=== PATIENT | female | born 1990 | race Caucasian/White ===

== ENCOUNTER → 2017-09-14 08:37 | Outpatient (CLI) | payer OTHER, SELFPAY | DX: Z34.01 Encounter for supervision of normal first pregnancy, first trimester (principal); Z3A.08 8 weeks gestation of pregnancy | CPT/HCPCS: 87086 ==

== ENCOUNTER → 2017-09-14 08:48 | Outpatient (CLI) | payer OTHER, SELFPAY ==
[2017-09-14 09:34] LABS: Appearance Urine UA CLEAR; Bilirubin Urine UA NEGATIVE (NEGATIVE); Color Urine UA YELLOW; Glucose Urine UA NEGATIVE (Normal); Ketones Urine UA NEGATIVE (NEGATIVE); Leukocyte Esterase Urine UA NEGATIVE (NEGATIVE); Nitrite Urine UA Negative (Negative); Occult Blood Urine UA NEGATIVE (Negative); Protein Urine UA NEGATIVE (Negative); Urobilinogen Urine UA 0.2 E.U./dL (0.2); pH Urine UA 7.5 (4.5-8.0)
[2017-09-14 09:44] LABS: Add Manual Diff / Slide Review NO; Basophils Percent Auto 0.7 % (0-2); Eosinophils Percent Auto 1.3 % (2-4); Hematocrit 39.7 % (36-46); Hemoglobin 13.5 g/dL (12.0-16.0); Lymphocytes Percent Auto 28.4 % (25-40); Mean Corpuscular HGB Conc 34.1 % (30-36); Mean Corpuscular Hemoglobin 29.1 PG (26-34); Mean Corpuscular Volume 85.3 fL (80-100); Monocytes Percent Auto 8.5 % (3-14); Neutrophils Absolute Auto 4800 /uL (3000-5900); Neutrophils Percent Auto 61.1 % (50-75); Platelet Count 225 X10^3/uL (150-400); Red Blood Cell Count 4.65 X10^6/uL (4.0-5.2); Red Cell Distribution Width 13.4 % (11.6-14.8); White Blood Cell Count 7.9 X10^3/uL (4.5-11.0)
[2017-09-14 10:04] LABS: Glucose 91 mg/dL (70-100)
[2017-09-14 10:59] LABS: Hepatitis B Surface Antigen NEGATIVE s/c (NEGATIVE); Rubella Antibody IgG 16.5 IU/mL (>15)
[2017-09-14 11:20] LABS: HIV 1 and 2 Antibody NEGATIVE (NEGATIVE); Hep C Virus Ab w/Reflex Quant NEGATIVE s/c (NEGATIVE)
[2017-09-18 13:59] LABS: HSV 2 IGG AB < 0.90 index (< 0.90); HSV1IGG < 0.90 index (< 0.90)
[2017-09-22 18:19] LABS: Rapid Plasma Reagin NON-REACTIVE
== END ==
DX: Z3A.08 8 weeks gestation of pregnancy (principal); Z34.01 Encounter for supervision of normal first pregnancy, first trimester
CPT/HCPCS: 80055; 81003; 82947; 83036; 86695; 86696; 86703; 86787; 86803; 86850; 86900; 86901; 87086

== ENCOUNTER → 2017-09-17 11:14 | Outpatient (CLI) | payer OTHER, SELFPAY | DX: Z53.9 Procedure and treatment not carried out, unspecified reason (principal) ==

== ENCOUNTER → 2017-10-15 16:35 | Outpatient (CLI) | payer OTHER, SELFPAY | DX: Z3A.12 12 weeks gestation of pregnancy (principal); Z36.9 Encounter for antenatal screening, unspecified | CPT/HCPCS: 36415; 84163; 84702 ==

== ENCOUNTER → 2017-11-12 08:26 | Outpatient (CLI) | payer OTHER, SELFPAY | DX: Z3A.12 12 weeks gestation of pregnancy (principal); Z36.0 Encounter for antenatal screening for chromosomal anomalies; Z34.02 Encounter for supervision of normal first pregnancy, second trimester | CPT/HCPCS: 36415; 86336 ==

== ENCOUNTER → 2018-01-28 08:31 | Outpatient (CLI) | payer OTHER, SELFPAY ==
[2018-01-28 10:42] LABS: GTT (PREG) 1 Hour PP 50gm Dose 117 mg/dL (76-139)
[2018-01-28 11:32] LABS: Hematocrit 35.7 % (36-46); Hemoglobin 12.2 g/dL (12.0-16.0)
== END ==
DX: Z34.02 Encounter for supervision of normal first pregnancy, second trimester (principal); Z3A.25 25 weeks gestation of pregnancy
CPT/HCPCS: 36415; 82950; 85014; 85018

== ENCOUNTER → 2018-04-05 10:56 | Outpatient (CLI) | payer OTHER, SELFPAY ==
[2018-04-06 09:20] LABS: Strep Grp B PCR NEG for Grp B Strep
== END ==
PROVIDERS: Visit Provider Specialist
DX: Z34.03 Encounter for supervision of normal first pregnancy, third trimester (principal)
CPT/HCPCS: 87653

== ENCOUNTER 2018-05-09 06:20 | Inpatient (IN) | payer OTHER, SELFPAY ==
--- NOTE | 2018-05-09 09:12 | P.HPOB_ITS ---
OB HPI Date/Time Date of admission: 05/09/18 Date Patient Seen: 05/09/18 Time Patient Seen: 08:57 History of Present Condition Chief complaint: EVALUATION OF LABOR : 1 Para: 0 Estimated Date of Delivery: 05/04/18 Estimated Gestational Age (weeks): 41 wee Narrative: Flower Ferrer is a 27 year old female one para 0 who presents in active labor. The patient's ANNE was determined by eight week ultrasound and initial exam. Her laboratory studies including screening studies for abnormalities are all within normal limits. During the her blood pressures remained normotensive and her urines remained negative for glucose and protein. Her weight during the went from 164 lb to 200 lb for 36 lb weight gain. Recent ultrasound on the 06 of May showed a vertex presentation with normal fluid and normal placenta and an infant with estimated weight of 8 lb 9 oz which was the 80th percentile . Evaluation of this patient's pelvis initially showed a to be not contracted but small. Indications Indication for induction OB: post dates History of Present care: good care and pounds weight gain (36) Dating criteria: LMP confirmed by 1st trimester US Ultrasounds: normal 1st trimester US, normal mid trimester US and other (Recent ultrasound showing baby to be 80th percentile) Obstetrical complications: none Medical complications: none Narrative: Patient with estimated smallish pelvis Preadmission Labs Blood type: O (+) positive -: Antibody screen: negative, Cystic fibrosis screen: unknown, GBS status: negative, HBsAG: negative, HIV: negative, HSV 1: negative, HSV 2: negative and RPR/VDLR: negative -: Chlamydia screen: detected (Negative) and Gonorrhea screen: detected (Negative) -: Rubella: immune and Varicella: immune HCT: 36.7 HCAB: negative PAP: Normal Integrated screen: Negative Quad screen: Normal Cell-free DNA: Not done 1 hr GTT: 117 Evaluation Evaluation Baseline heart rate: 130 Variability: Average (6-10) monitor accelerations: Present monitor decelerations: Variable Contraction Frequency (minutes): 6 Uterine Contraction Intensity: Moderate Category of Tracing: II Cervical dilation (cm): 5 Cervical effacement (%): 100 station: -1 [facility] Surgical History No history of previous surgery (Resolved 05/22/16) Social History Smoking Status: Never smoker Social History Smoking Status: Never smoker Meds Home Medications Medication Instructions Recorded Confirmed Type vitamins no.121-iron 28 tab PO .qd tab 09/14/17 09/14/17 History mg-folic acid 800 mcg tablet Allergies Allergy/AdvReac Type Severity Reaction Status Date / Time No Known Allergies Allergy Uncoded 06/13/17 12:42 Review of Systems Review of Systems All systems reviewed & are unremarkable except as noted in HPI and below Exam Const General: cooperative and healthy appearing HENOR Head: normal to inspection Ears: hearing grossly normal bilaterally Nose: external nose normal Face and sinus: normal facial exam Mouth: oral mucosae normal, lip normal, tongue normal and moist mucous membranes Teeth and gingiva: dentition normal Throat: posterior oropharynx normal Eyes General: appearance normal, both eyes and all related structures Neck Neck: normal visual inspection and full ROM Chest Chest: normal inspection of the chest and normal palpation of entire chest wall Breast inspection: normal inspection of the breasts and normal inspection of the axillae Breast Palpation: normal palpation of the breasts and normal palpation of the axillae Resp Effort & Inspection: normal respiratory effort Auscultation: clear to auscultation bilaterally Cardio Palpation: normal PMI Rate: regular rate Rhythm: regular rhythm Heart Sounds: S1 normal and S2 normal GI Inspection: normal to inspection Palpation: soft and no hepatosplenomegaly Percussion: normal to percussion Auscultation: normal bowel sounds OB/External & Speculum: external exam normal Manual OB Exam: dilated 5, effaced fully and station -1 Uterus Location (Fundal Height): 39 Presentation: vertex Estimated Weight (lbs): 9 Amniotic Fluid: no fluid Back/Spine/Pelvis Thoracic/Lumbar Spine: thoracic and lumbar spine normal to inspection Skin General: no rashes or lesions noted Neuro General: alert, oriented x3, tone normal and moves all extremities Cognition: normal cognition Speech: speech normal Gait: normal gait Motor: muscle tone normal throughout Sensory Exam: no sensory deficits noted Extrem General: normal to inspection and normal exam except as noted Psych Appearance: grossly normal and well kempt Mental Status: mental status grossly normal Speech and Movement: speech and movement normal Assessment and Plan (1) 41 weeks gestation of : Current visit: Yes Status: Acute Active labor 4-5 cm dilated vertex presentation with borderline pelvis Irregular contraction Plan is for IV fluid bolus, epidural, rupture membranes and Pitocin Plan: IV fluid bolus Epidural anesthesia Rupture membranes Pitocin augmentation of labor (2) Labor and delivery affected by generally contracted pelvis: Current visit: Yes Status: Acute
[2018-05-09] MEDS: LACTATED RINGERS 1,000 ML 1000 ML IV (09:30)
[2018-05-09 10:02] LABS: Add Manual Diff / Slide Review NO; Basophils Absolute Auto 100 /uL (0-100); Basophils Percent Auto 0.4 % (0-2); Eosinophils Absolute Auto 0 /uL (0-450); Hematocrit 36.6 % (36-46); Hemoglobin 11.8 g/dL (12.0-16.0); Lymphocytes Absolute Auto 1700 /uL (1100-4500); Lymphocytes Percent Auto 11.9 % (25-40); Mean Corpuscular HGB Conc 32.1 % (30-36); Mean Corpuscular Hemoglobin 25.6 PG (26-34); Mean Corpuscular Volume 79.8 fL (80-100); Monocytes Absolute Auto 600 /uL (0-900); Monocytes Percent Auto 4.1 % (3-14); Neutrophils Absolute Auto 11800 /uL (1500-7000); Neutrophils Percent Auto 83.6 % (50-75); Platelet Count 213 X10^3/uL (150-400); Red Blood Cell Count 4.58 X10^6/uL (4.0-5.2); Red Cell Distribution Width 15.2 % (11.6-14.8); White Blood Cell Count 14.1 X10^3/uL (4.5-11.0)
[2018-05-09] MEDS: LACTATED RINGERS 1,000 ML 125 ML IV (11:14)
[2018-05-09] MEDS: OXYTOCIN PREMIX 30 UNIT/500 ML PLAST..BAG IV (11:14)
[2018-05-09 12:08] VITALS: BP 118/69
--- NOTE | 2018-05-09 17:31 | P.PCNOB_ITS ---
Delivery date: 05/09/18 Intrapartal events: Prolonged 2nd Stage > 2.5 hours Cervical ripening method: none Induction method: none Delivery augmentation: rupture of membranes and pitocin Delivery monitor: external FHT and external uterine Route of delivery: forceps Indication for instrumentation: other (Prolonged 2nd stage) Episiotomy description: Midline L&D Laceration Description: Perineal - 4th Degree Delivery repair: chromic Estimated blood loss (mL): 450 Anesthesia type: Epidural Complications: none Narrative: the patient is a 27-year-old white female one now para one patient presented in active labor at 41 weeks of . An epidural was placed and membranes were ruptured and Pitocin begun. Patient made good progress to complete and then pushed for 2 hr and 45 min at which point there was maternal exhaustion. The epidural was reinforced. Low forceps were applied in the midline and a live-born male infant was delivered with scores of eight at 1 min and nine at 5 min in good condition. The respiratory therapist and nurse pronounced the infant normal in good condition. Cord blood was obtained. Cord had three vessels. The placenta delivered spontaneously. There was 0.25 degree extension. The rectum was repaired in two layers using two 0 chromic suture. Individual two 0 chromic suture were used for the rectal sphincter. the episiotomy was then closed in routine fashion using two 0 chromic suture in a continuous fashion. At the end of the procedure there was no bleeding. Vagina and perineum were intact. There were no rectal defects on di gital exam. Plan for aftercare: Routine aftercare
[2018-05-09] MEDS: DERMOPLAST SPRAY 20% 60 ML 1 SPRAY TOP (20:32)
[2018-05-09] MEDS: DOCUSATE 250 MG CAPSULE PO (20:33)
[2018-05-09] MEDS: LANOLIN OINT 7 GM 1 APPLIC TOP (20:34)
[2018-05-10] MEDS: KETOROLAC 30 MG/ML VIAL IV ×3 (03:50→18:26)
[2018-05-10 07:25] LABS: Hematocrit 27.6 % (36-46)
--- NOTE | 2018-05-10 09:17 | P.PN_ITS ---
Subjective Date Patient Seen: 05/10/18 Time Patient Seen: 09:15 Interval history: The patient is a 27-year-old one para one status post difficult forceps delivery but doing well. She is off IVs. She is taking p.o. well. She does continue with a Garcia in place because of the swelling in the vagina and periurethral E. she is draining clear urine. Exam Vital Signs (past 8 hours): Examination today is confined abdomen and pelvis. Fundus is U minus two. Lochia is scant Perineum is healing well Objective Labs Result Diagrams: 05/10/18 06:45 Labs: Laboratory Results - last 24 hr 05/09/18 05/09/18 05/10/18 09:40 09:40 06:45 WBC 14.1 H RBC 4.58 Hgb 11.8 L 9.0 L Hct 36.6 27.6 L MCV 79.8 L MCH 25.6 L MCHC 32.1 RDW 15.2 H Plt Count 213 Neut % (Auto) 83.6 H Lymph % (Auto) 11.9 L [place] % (Auto) 4.1 Eos % (Auto) 0.0 L Baso % (Auto) 0.4 Neut # (Auto) 08950 H Lymph # (Auto) 1700 [place] # (Auto) 600 Eos # (Auto) 0 Baso # (Auto) 100 Blood Type O Positive Antibody Screen Negative Assessment & Plan Assessment & Plan narrative: 1st day Doing well Garcia still in place Plan is for increased ambulation DC Garcia
[2018-05-10] MEDS: DOCUSATE 250 MG CAPSULE PO (10:14)
[2018-05-10] MEDS: MAGNESIUM HYDROXIDE 30 ML UDC PO (10:16)
[2018-05-10] MEDS: OXYCODONE/ACETAMINOPHEN 5/325 TABLET 2 TAB PO (14:49)
[2018-05-11] MEDS: IBUPROFEN 600 MG TABLET PO ×2 (00:30→06:48)
[2018-05-11 08:43] VITALS: BP 122/76; PULSE 83; RESP 18; TEMP 36.4
--- NOTE | 2018-05-11 08:44 | P.DS_ITS ---
Discharge Providers Date of admission: 05/09/18 06:20 Discharge Date: 05/11/18 Primary care physician: Matthew Recinos MD Consults: 05/09/18 09:14 Consult to Anesthesiology Urgent Comment: Consulting Provider: Anesthesiologist Reason for consultation: Epidural 05/09/18 20:25 Consult to Licensed [employer] Routine Comment: Discharge provider: Matthwe Recinos MD Summary Date Patient Seen: 05/11/18 Time Patient Seen: 08:40 Procedures: Indicated low forceps delivery Epidural anesthesia Median episiotomy 4Th degree repair Hospital Course: the patient is a 27-year-old white female one para one who presented in active labor. She was 41 weeks . Membranes were ruptured and Pitocin was begun because of a desultory labor. Epidural was placed. Patient made good progress to complete and pushed for 2 hr and 45 min but could push no longer. Laufe forceps were applied in the midline and live-born male was delivered with scores of eight at 1 min nine at 5 min in good condition. The baby weighed 8 lb 7 oz. There are no cervical or vaginal tears. A median episiotomy was cut because of the risk of shoulder dystocia. Patient sustained 0.25 degree tear. 4Th degree tear was repaired with a two layer technique. The estimated blood loss was 450 cc. Post delivery the patient did well. Garcia was initially left in place. It was discontinued the following day. She was progressively elevated and ambulated. And she was discharged home for follow-up in four weeks. instructions were given with regards to diet wound care bathing and exercise. Peripartum Data Infant Delivery Method: Assisted Delivery Laceration description: Perineal - 4th Degree Episiotomy description: Midline complications: none Discharge Diagnosis (1) 41 weeks gestation of : Status: Acute (2) Labor and delivery affected by generally contracted pelvis: Status: Acute Status at Discharge Cognitive/behavioral status at discharge: oriented Functional status at discharge: independent ambulation Overall status at discharge: patient is progressing back to baseline Time Spent with Patient Total time spent providing and/or coordinating discharge services: Specific discharge activities: No intercourse Progressive activity Objective Labs Result Diagrams: 05/10/18 06:45 Discharge Plan Discharge Plan Patient Disposition: Home Discharge Med Rec/Prescriptions Prescriptions: New Dermoplast (with menthol) 20-0.5 % Aerosol 1 spray topical Q1HR PRN (Reason: perineal pain) Qty: 1 RF: 0 oxycodone-acetaminophen 5-325 mg Tablet 2 tab PO Q4HR Qty: 30 RF: 0 magnesium hydroxide [Milk of Magnesia] 400 mg/5 mL Suspension 30 ml PO DAILY PRN (Reason: Constipation) Qty: 240 RF: 0 ibuprofen 600 mg Tablet 600 mg PO Q6HR PRN (Reason: As Needed For Fever/Mild Pain) Qty: 30 RF: 0 docusate sodium 250 mg Capsule 250 mg PO DAILY Qty: 20 RF: 0 Wjj-K-Oavrap Cream 1 applic topical PRN PRN (Reason: Tenderness) Qty: 1 RF: 0 ferrous gluconate 324 mg (38 mg iron) Tablet 324 mg PO BID Qty: 60 RF: 0 Continued PNV no.811-ohmp-aujuj acid 28 mg iron- 800 mcg tablet PO .qd RF: 0 Follow up/Referrals: Matthew Recinos MD [Primary Care Provider] - Provider Discharge Instructions Diet: Diet as Tolerated Activity: up ad karl No intercourse Cold/Heat Therapy: iced perineum Skin/Wound/Dressing Care Skin care: benzocaine spray Report to your healthcare provider any signs of infection, such as:: chills, fever, increased pain, unusual drainage and unusual redness Dressing: none Other wound treatment: keep episiotomy clean and dry Discharge Data Primary Care Provider: Matthew Recinos Attending Provider: Matthew Recinos Admit Date/Time: 05/09/18 06:20
== END 2018-05-11 10:30 | disposition home or self-care (01) | DRG 768 ==
LOC: AC 06:23 → LABOR 07:46
DX: O48.0 Post-term pregnancy (principal); Z37.0 Single live birth; O70.3 Fourth degree perineal laceration during delivery; O63.1 Prolonged second stage (of labor); Z3A.41 41 weeks gestation of pregnancy
CPT/HCPCS: 01967; 36415; 59050; 59400; 85014; 85018; 85025; 86850; 86900; 86901; G0379; J1885; J2590; J3010

== ENCOUNTER → 2019-02-07 07:20 | Outpatient (CLI) | payer OTHER, SELFPAY ==
[2019-02-07 08:13] LABS: Hematocrit 41.9 % (36-46); Hemoglobin 14.2 g/dL (12.0-16.0); Mean Corpuscular HGB Conc 33.9 % (30-36); Mean Corpuscular Volume 85.3 fL (80-100); Platelet Count 215 X10^3/uL (150-400); Red Blood Cell Count 4.91 X10^6/uL (4.0-5.2); Red Cell Distribution Width 13.9 % (11.6-14.8); White Blood Cell Count 5.9 X10^3/uL (4.5-11.0)
[2019-02-07 09:25] LABS: Alanine Aminotransferase 74 IU/L (<35); Albumin 4.6 g/dL (3.5-5.0); Albumin Globulin Ratio 1.5 (1.0-2.8); Alkaline Phosphatase 69 U/L (38-126); Aspartate Aminotransferase 32 IU/L (14-36); BUN Creatinine Ratio 24.3 (6-22); Bilirubin Total 0.7 mg/dL (0.2-1.3); Blood Urea Nitrogen 17 mg/dL (7-17); Calcium 9.5 mg/dL (8.4-10.2); Carbon Dioxide 25 mmol/L (22-32); Chloride 104 mmol/L (98-107); Cholesterol 197 mg/dL (140-199); Estimated Glomerular Filt Rate > 60.0 mL/min (>60); Glucose 97 mg/dL (70-100); HDL Cholesterol 56 mg/dL (40-60); HEMOLYSIS < 15 (0-50); LDL Cholesterol Calculated 117 mg/dL (<100); Sodium 140 mmol/L (137-145); Total Protein 7.6 g/dL (6.3-8.2); Triglycerides 121 mg/dL (35-150)
== END ==
PROVIDERS: PCP Nurse Practitioner Family; Visit Provider Nurse Practitioner Family
DX: Z00.00 Encounter for general adult medical examination without abnormal findings (principal); Z13.6 Encounter for screening for cardiovascular disorders
CPT/HCPCS: 36415; 80053; 80061; 85027

== ENCOUNTER → 2019-09-11 07:51 | Outpatient (CLI) | payer OTHER, SELFPAY ==
[2019-09-11 09:11] LABS: Alanine Aminotransferase 46 IU/L (<35); Albumin 4.5 g/dL (3.5-5.0); Albumin Globulin Ratio 1.6 (1.0-2.8); Alkaline Phosphatase 52 U/L (38-126); Aspartate Aminotransferase 43 IU/L (14-36); Bilirubin Total 0.6 mg/dL (0.2-1.3); Bilirubin Unconjugated 0.6 mg/dL (0.0-1.1); Globulin 2.8 g/dL (1.7-4.1); HEMOLYSIS 27 (0-50); Total Protein 7.3 g/dL (6.3-8.2)
== END ==
PROVIDERS: PCP Nurse Practitioner Family; Referring Provider Nurse Practitioner Family; Visit Provider Nurse Practitioner Family
DX: R74.0 Nonspecific elevation of levels of transaminase and lactic acid dehydrogenase [LDH] (principal)
CPT/HCPCS: 36415; 80076

== ENCOUNTER → 2019-09-12 07:31 | Outpatient (CLI) | payer OTHER, SELFPAY ==
[2019-09-12 09:03] LABS: TSH w/ Reflex to FT4 1.48 uIU/mL (0.47-4.68)
[2019-09-13 05:39] LABS: HBsAg Screen Negative (Negative); Hepatitis A Antibody IgM Indeterminate (Negative); Hepatitis B Core Antibody IgM Negative (Negative); Hepatitis C Antibody 0.3 s/co ratio (0.0-0.9)
[2019-09-16 12:08] LABS: Smooth Muscle Antibody 7 Units (0-19)
[2019-09-17 17:08] LABS: ANA Screen, IFA Positive (.)
== END ==
PROVIDERS: PCP Nurse Practitioner Family; Referring Provider Nurse Practitioner Family; Visit Provider Nurse Practitioner Family
DX: R74.8 Abnormal levels of other serum enzymes (principal)
CPT/HCPCS: 36415; 80074; 83516; 84443; 86038

== ENCOUNTER → 2019-09-15 14:39 | Outpatient (CLI) | payer OTHER, SELFPAY ==
--- NOTE | 2019-09-15 14:41 | DI.US.S_ITS ---
PROCEDURE: US ABDOMEN COMPLETE INDICATIONS: ELEV LFTS TECHNIQUE: Real-time scanning was performed of the abdominal and retroperitoneal organs, with image documentation. COMPARISON: None. FINDINGS: Liver: Liver is normal in size and homogeneous in echotexture. Gallbladder: Mobile stones are seen within the gallbladder lumen and the gallbladder wall is at the upper limits of normal in thickness at 3 mm Biliary ducts: Intrahepatic bile ducts are non-dilated. Extrahepatic bile duct caliber measures 5.0 mm. Normal is 6-7 mm or less in diameter, or 10 mm or less post-cholecystectomy. Pancreas: Visualized portions of the pancreas are sonographically normal. Spleen: Spleen is normal in size and homogeneous in echotexture. Kidneys: Kidneys are normal in size and echotexture. Right kidney measures 9.8 cm long; left kidney measures 9.7 cm long. No hydronephrosis or nephrolithiasis. No solid masses. Aorta: Visualized aorta is normal in caliber at less than 3 cm. Iliacs: Proximal common iliac arteries are normal in caliber at less than 2.5 cm. IVC: Intrahepatic inferior vena cava is patent. Miscellaneous: No free abdominal fluid. IMPRESSION: Gallstones are present within the gallbladder lumen but they are mobile and there is no sign of a definite acute cholecystitis superimposed. No liver mass lesion is found. No biliary distention Dictated by: Ilan Maurer M.D. on 09/15/2019 at 16:57 Approved by: Ilan Maurer M.D. on 09/15/2019 at 16:59
== END ==
PROVIDERS: PCP Nurse Practitioner Family; Referring Provider Nurse Practitioner Family; Visit Provider Nurse Practitioner Family
DX: R74.8 Abnormal levels of other serum enzymes (principal); K80.20 Calculus of gallbladder without cholecystitis without obstruction
CPT/HCPCS: 76700

== ENCOUNTER → 2020-02-02 09:14 | Outpatient (CLI) | payer OTHER, SELFPAY ==
[2020-02-02 09:51] LABS: Add Manual Diff / Slide Review NO; Basophils Absolute Auto 0 /uL (0-100); Basophils Percent Auto 0.5 % (0-2); Eosinophils Absolute Auto 100 /uL (0-450); Hematocrit 39.2 % (36-46); Hemoglobin 13.2 g/dL (12.0-16.0); Lymphocytes Absolute Auto 1900 /uL (1100-4500); Lymphocytes Percent Auto 29.7 % (25-40); Mean Corpuscular HGB Conc 33.7 % (30-36); Mean Corpuscular Hemoglobin 28.8 PG (26-34); Mean Corpuscular Volume 85.4 fL (80-100); Monocytes Absolute Auto 400 /uL (0-900); Monocytes Percent Auto 6.6 % (3-14); Neutrophils Absolute Auto 3900 /uL (1500-7000); Neutrophils Percent Auto 62.2 % (50-75); Platelet Count 219 X10^3/uL (150-400); Red Blood Cell Count 4.58 X10^6/uL (4.0-5.2); Red Cell Distribution Width 13.4 % (11.6-14.8); White Blood Cell Count 6.2 X10^3/uL (4.5-11.0)
[2020-02-02 09:54] LABS: Bilirubin Urine UA NEGATIVE (NEGATIVE); Color Urine UA YELLOW; Glucose Urine UA NEGATIVE (Negative); Ketones Urine UA NEGATIVE (NEGATIVE); Leukocyte Esterase Urine UA TRACE (NEGATIVE); Nitrite Urine UA NEGATIVE (Negative); Occult Blood Urine UA NEGATIVE (Negative); Protein Urine UA NEGATIVE (Negative); Specific Gravity Urine UA 1.015 (1.000-1.035); Urobilinogen Urine UA 0.2 E.U./dL (0.2)
[2020-02-02 09:55] LABS: Appearance Urine UA Slightly Cloudy; RBC Urine None Seen (0-5/HPF)
[2020-02-02 10:02] LABS: Bacteria Urine Many (>30); Squamous Epithelial Cell Urine 10-30 /HPF (0-5/HPF); WBC Urine 0-1/HPF (0-5/HPF)
[2020-02-02 16:32] LABS: Hepatitis B Surface Antigen NEGATIVE s/c (NEGATIVE); Rubella Antibody IgG 10.9 IU/mL (>15)
[2020-02-02 16:52] LABS: HIV 1 & 2 Ab/Ag 4th Gen Combo NEGATIVE (NEGATIVE); Hep C Virus Ab w/Reflex Quant NEGATIVE s/c (NEGATIVE)
[2020-02-03 02:40] LABS: Hepatitis A Ab IgM Negative (Negative); Hepatitis A Ab Total Positive (Negative)
[2020-02-03 05:13] LABS: Varicella IgG Antibody 295 index (Immune >165)
[2020-02-03 07:07] LABS: RPR Screen Non Reactive (Non Reactive)
== END ==
PROVIDERS: PCP Nurse Practitioner Family; Referring Provider Obstetrics & Gynecology; Visit Provider Obstetrics & Gynecology
DX: Z34.81 Encounter for supervision of other normal pregnancy, first trimester (principal); R74.8 Abnormal levels of other serum enzymes
CPT/HCPCS: 36415; 80055; 81003; 81015; 84163; 84702; 86708; 86709; 86787; 86803; 86850; 86900; 86901; 87086; 87389

== ENCOUNTER → 2020-03-17 09:10 | Outpatient (CLI) | payer OTHER, SELFPAY ==
--- NOTE | 2020-03-17 09:12 | DI.US.S_ITS ---
PROCEDURE: US OB >= 14 WEEKS FETUS INDICATIONS: ANATOMY OUTSIDE/PRIOR DATING DATA: Last menstrual period (LMP): Unknown . LMP-based estimated date of delivery (ANNE): Unknown . First dating scan (date and location): 01/01/20 . Estimated date of delivery (ANNE) from first dating scan: 08/06/20 TECHNIQUE: Real-time scanning was performed of the fetus, with image documentation and biometric measurements. Endovaginal scanning: Not performed COMPARISON: [facility], US OB <= 14 WEEKS FETUS, 01/01/2020, 8:45. [facility], US ABDOMEN COMPLETE, 09/15/2019, 14:58. [facility], OB >= 14 WEEKS FETUS, 12/31/2017, 8:22. FINDINGS: General: A single living intrauterine gestation is present. Presentation: Variable. Placenta: Placental position is posterior , without previa. Amniotic fluid index: 15.1 cm, normal range is 5-24 cm. , largest pocket measures 5.2 cm heart rate: 150 beats per minute. Maternal cervical canal: 4.2 cm long. Normal lower limit is 2.5 cm. biometrics: Biparietal diameter: 4.6 cm, 20 weeks 0 days Head circumference: 16.9 cm, 19 weeks 4 days Abdominal circumference: 15.4 cm, 20 weeks 4 days Femur length: 3.0 cm, 19 weeks 2 days Estimated gestational age from initial scan: 19 weeks 5 days Composite gestational age from present scan: 19 weeks 5 days Estimated weight and percentile: 322 g, 59th percentile Measurement variability for biometric dating: +/- 7 days from 14 weeks to 15 weeks 6 days gestation, +/- 10 days from 16 weeks to 21 weeks 6 days gestation, +/- 2 weeks from 22 weeks to 27 weeks 6 days gestation, +/- 3 weeks for 28 weeks gestation or later. weight reference: 4500 g or EFW >90/95% is considered macrosomia or large for gestational age. EFW <10% is small for gestational age. EFW 5% or less is considered intra-uterine growth restriction. Anatomic survey: Neuro: Ventricles are non-dilated at less than 10 mm. Cisterna magna is normal at 3-11 mm. Cerebellum is normal in size and morphology. Nuchal skin fold: Normal at less than 6 mm between 14-21 weeks gestational age. Face: Nose and lips, facial profile are normal. Spine: No evidence for spina bifida. Heart: 4-chambered heart is present, with normal ventricular outflow tracts. Diaphragm: Diaphragm is intact. Stomach: Left-sided stomach is present. Kidneys: No hydronephrosis. Normal is less than 5 mm in 2nd trimester, less than 7 mm in 3rd trimester. Cord: 3-vessel cord has orthotopic insertion. Bladder: Normal in size. Extremities: All 4 extremities identified. IMPRESSION: Single living intrauterine fetus in variable presentation. Expected interval growth as above Normal anatomic survey Dictated by: Yaya Moreno M.D. on 03/17/2020 at 11:11 Approved by: Yaya Moreno M.D. on 03/17/2020 at 11:15
[2020-03-17 11:48] LABS: Alanine Aminotransferase 22 IU/L (<35); Albumin 3.6 g/dL (3.5-5.0); Albumin Globulin Ratio 1.4 (1.0-2.8); Alkaline Phosphatase 60 U/L (38-126); Aspartate Aminotransferase 23 IU/L (14-36); Bilirubin Total 0.2 mg/dL (0.2-1.3); Bilirubin Unconjugated 0.2 mg/dL (0.0-1.1); Globulin 2.6 g/dL (1.7-4.1); HEMOLYSIS < 15 (0-50); Total Protein 6.2 g/dL (6.3-8.2)
[2020-03-19 20:36] LABS: AFP, Serum 51.6 ng/mL (.); Estriol, Free 2.36 ng/mL (.); Inhibin A, Dimeric 187.84 pg/mL (.); Inhibin A, MoM 0.98 (.); Maternal Ethnicity Caucasian (.); Maternal Weight 170 lbs (.); Number of Fetuses No (.); OSBR Risk 1 IN 10000 (.); Results Report (.); Test Results *Screen Negative* (.); hCG, Serum 47780 mIU/mL (.)
== END ==
PROVIDERS: PCP Nurse Practitioner Family; Referring Provider Nurse Practitioner Family; Visit Provider Obstetrics & Gynecology
DX: Z34.92 Encounter for supervision of normal pregnancy, unspecified, second trimester (principal); R74.8 Abnormal levels of other serum enzymes; Z3A.20 20 weeks gestation of pregnancy
CPT/HCPCS: 36415; 76811; 80076; 82105; 82677; 84702; 86336

== ENCOUNTER → 2020-04-26 08:30 | Outpatient (CLI) | payer OTHER, SELFPAY ==
[2020-04-26 09:56] LABS: Hematocrit 33.3 % (36-46); Hemoglobin 11.3 g/dL (12.0-16.0)
[2020-04-26 10:51] LABS: GTT (PREG) 1 Hour PP 50gm Dose 121 mg/dL (76-139)
== END ==
PROVIDERS: PCP Nurse Practitioner Family; Referring Provider Obstetrics & Gynecology; Visit Provider Obstetrics & Gynecology
DX: Z34.82 Encounter for supervision of other normal pregnancy, second trimester (principal); Z3A.26 26 weeks gestation of pregnancy
CPT/HCPCS: 36415; 82950; 85014; 85018

== ENCOUNTER → 2020-07-05 09:26 | Outpatient (CLI) | payer OTHER, SELFPAY ==
[2020-07-06 11:10] LABS: Strep Grp B PCR NEG for Grp B Strep
== END ==
PROVIDERS: PCP Nurse Practitioner Family; Visit Provider Obstetrics & Gynecology
DX: Z34.83 Encounter for supervision of other normal pregnancy, third trimester (principal); Z3A.36 36 weeks gestation of pregnancy
CPT/HCPCS: 87653

== ENCOUNTER 2020-07-25 19:22 | Inpatient (IN) | payer OTHER, SELFPAY ==
[2020-07-25 20:35] LABS: Add Manual Diff / Slide Review NO; Basophils Absolute Auto 0 /uL (0-100); Basophils Percent Auto 0.4 % (0-2); Eosinophils Absolute Auto 100 /uL (0-450); Eosinophils Percent Auto 0.8 % (2-4); Hematocrit 35.1 % (36-46); Hemoglobin 11.8 g/dL (12.0-16.0); Lymphocytes Absolute Auto 2300 /uL (1100-4500); Mean Corpuscular HGB Conc 33.6 % (30-36); Mean Corpuscular Hemoglobin 28.7 PG (26-34); Mean Corpuscular Volume 85.4 fL (80-100); Monocytes Absolute Auto 700 /uL (0-900); Monocytes Percent Auto 8.9 % (3-14); Neutrophils Absolute Auto 5100 /uL (1500-7000); Neutrophils Percent Auto 61.9 % (50-75); Platelet Count 169 X10^3/uL (150-400); Red Blood Cell Count 4.11 X10^6/uL (4.0-5.2); Red Cell Distribution Width 14.5 % (11.6-14.8); White Blood Cell Count 8.3 X10^3/uL (4.5-11.0)
[2020-07-25] MEDS: DINOPROSTONE VAG (CERVIDIL) 10 MG VAG (20:40)
[2020-07-25 20:50] LABS: COVID19 - ADMIT (NP swab/PCR) Negative (Negative)
[2020-07-25] MEDS: ZOLPIDEM 5 MG TABLET PO ×2 (21:32→21:33)
[2020-07-25 22:56] VITALS: BP 109/61
--- NOTE | 2020-07-26 08:27 | P.HPOB_ITS ---
OB HPI Date/Time Date of admission: 07/25/20 Date Patient Seen: 07/26/20 Time Patient Seen: 07:50 History of Present Condition Chief complaint: : 2 Para: 1 Estimated Date of Delivery: 07/31/20 Estimated Gestational Age (weeks): 39 Narrative: Flower Ferrer is a 29 year old 001 at 39 weeks 2 days, presenting for elective induction in the setting of a prior post-dates forceps delivery with a third-degree perineal laceration. Patient reports feeling well today, intermittent contractions, no vaginal bleeding or loss of fluid, good movement, no other symptoms or concerns. Her has been otherwise uncomplicated. Her was otherwise uncomplicated except for the large perineal laceration, and the patient strongly desires induction of labor 39 weeks to avoid a similar experience. She has no other contributory medical, surgical, family, or social history. Indications Indication for induction OB: other (History of third-degree perineal laceration) History of Present care: good care, initiated at week # (9), number of visits (12) and pounds weight gain (29) Dating criteria: based on 1st trimester US only Ultrasounds: normal 1st trimester US and normal mid trimester US Obstetrical complications: none Medical complications: none Preadmission Labs Blood type: O (+) positive -: Antibody screen: negative, GBS status: negative, HBsAG: negative, HIV: negative and RPR/VDLR: negative -: Chlamydia screen: not detected and Gonorrhea screen: not detected -: Rubella: immune and Varicella: immune Quad screen: Normal Urine: no growth 1 hr GTT: 121 Prior (ies) History: G1: 05/09/18, 40+5, 8#8, M, FAVD, 3rd degree perineal laceration, - Dr. Recinos Evaluation Evaluation Baseline heart rate: 135 Variability: Moderate (11-25) monitor accelerations: Present Monitor Decelerations: Absent Contraction Frequency (minutes): 5 Uterine Contraction Intensity: Mild Category of Tracing: Reactive Status: Category l Cervical dilation (cm): 2 Cervical effacement (%): 50 station: -2 Laboratory results: Laboratory Tests 07/25/20 07/25/20 07/25/20 20:00 20:00 20:18 WBC 8.3 RBC 4.11 Hgb 11.8 L Hct 35.1 L MCV 85.4 MCH 28.7 MCHC 33.6 RDW 14.5 Plt Count 169 Neut % (Auto) 61.9 Lymph % (Auto) 28.0 [place] % (Auto) 8.9 Eos % (Auto) 0.8 L Baso % (Auto) 0.4 Neut # (Auto) 5100 Lymph # (Auto) 2300 [place] # (Auto) 700 Eos # (Auto) 100 Baso # (Auto) 0 SARS-CoV-2 (PCR) Negative Blood Type O Positive Antibody Screen Negative Comments: EFW 8 lb [facility] Medical History Elevated liver enzymes Encounter for wellness examination in adult Gallstones (10/2019) Labor and delivery affected by generally contracted pelvis (spontaneous vaginal delivery) (~05/09/18) Surgical History Hx of tonsillectomy (~1997) Family History Grandmother No problems noted. Mother No problems noted. Father No problems noted. Grandfather No problems noted. 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[place] special sarah needs: No Smoking Status: Former smoker second hand exposure: No alcohol intake: former (pre- : Socially 3X/week) substance use type: does not use Meds Home Medications and Allergies Home Medications Medication Instructions Recorded Confirmed Type prenat.vits,taryn,rpm-zqfu-spbvk 1 tab PO DAILY 12/24/19 07/25/20 History Allergies Allergy/AdvReac Type Severity Reaction Status Date / Time No Known Allergies Allergy Uncoded 04/26/20 09:48 Review of Systems Constitutional Constitutional: Reports system reviewed and no additional complaints, except as documented Cardiovascular Cardiovascular: Reports system reviewed and no additional complaints, except as documented Respiratory Respiratory: Reports system reviewed and no additional complaints, except as documented Gastrointestinal Gastrointestinal: Reports system reviewed and no additional complaints, except as documented Genitourinary Genitourinary: Reports system reviewed and no additional complaints, except as documented Neurologic Neurologic: Reports system reviewed and no additional complaints, except as documented Exam Vital Signs (past 8 hours): VSS Resp Effort & Inspection: normal respiratory effort Auscultation: clear to auscultation bilaterally Cardio Rate: regular rate Rhythm: regular rhythm GI Palpation: soft and No tender External Female Exam: normal external appearance Extrem General: normal to inspection Objective Labs Result Diagrams: 07/25/20 20:00 Labs: Laboratory Results - last 24 hr 07/25/20 07/25/20 07/25/20 20:00 20:00 20:18 WBC 8.3 RBC 4.11 Hgb 11.8 L Hct 35.1 L MCV 85.4 MCH 28.7 MCHC 33.6 RDW 14.5 Plt Count 169 Neut % (Auto) 61.9 Lymph % (Auto) 28.0 [place] % (Auto) 8.9 Eos % (Auto) 0.8 L Baso % (Auto) 0.4 Neut # (Auto) 5100 Lymph # (Auto) 2300 [place] # (Auto) 700 Eos # (Auto) 100 Baso # (Auto) 0 SARS-CoV-2 (PCR) Negative Blood Type O Positive Antibody Screen Negative Assessment and Plan Assessment and Plan Assessment and Plan narrative: This patient is admitted for induction of labor in the setting of a prior 8#8 forceps assisted vaginal delivery with a 3rd degree perineal laceration. Cervidil ripening overnight successful, for pitocin per protocol this AM with AROM. Anticipate . EFW 8#. - cEFM, toco
[2020-07-26] MEDS: LACTATED RINGERS 1,000 ML 100 ML IV ×3 (08:39→19:15)
[2020-07-26] MEDS: OXYTOCIN PREMIX 30 UNIT/500 ML PLAST..BAG IV (08:39)
--- NOTE | 2020-07-26 10:07 | PM.OBPNLAB ---
Date/Time Date Patient Seen: 07/26/20 Time Patient Seen: 10:07 Pain Control Pain control: tolerating well and epidural Pelvic Exam Dilation (cm): 3 Effacement (%): 70 station: -2 Amniotic membrane status: Intact Contractions Pitocin rate (mU/min): 2 Contraction intensity: Mild Status status: Category l Heart Rate Baseline: 135 Monitor Accelerations: Present Monitor Decelerations: Absent Monitor Variability: Moderate Assessment and Plan Assessment: induction ongoing Plan: continuous present management
--- NOTE | 2020-07-26 11:15 | PM.AN.REGBLK ---
Regional Block Pre-procedure Procedure: Continuous Lumbar Epidural for L&D Attending OB provider: Felicita Medina PMH/ROS narrative: term IOL for history of post-dates delivery. No complications with , no significant PMH. Hx: No personal or family history of anesthesia problems. ASA Class: II Labs: Hct 35.1 % (36-46) L 07/25/20 20:00 Plt Count 169 X10^3/uL (150-400) 07/25/20 20:00 Medications: Current Medications Generic Name Dose Route Start Last Admin Trade Name Freq PRN Reason Stop Dose Admin Carboprost Tromethamine 250 mcg 07/26/20 08:06 Carboprost 250 Mcg/Ml Ampul IM Q90M PRN Bleeding Lactated Ringer's 1,000 mls @ 100 mls/hr 07/25/20 19:45 07/26/20 08:39 Lactated Ringers IV 100 mls/hr CONT NAT Administration Lactated Ringer's 1,000 mls @ 100 mls/hr 07/26/20 08:15 Lactated Ringers IV CONT NAT Oxytocin/Lactated Ringer's 30 unit in 500 mls @ 200 mls/hr 07/26/20 08:06 07/26/20 08:39 Oxytocin Premix IV 2 mls/hr CONT PRN Administration Bleeding Protocol Tranexamic Acid 1,000 mg/ 100 mls @ 200 mls/hr 07/26/20 08:06 Sodium Chloride IV NOW PRN Bleeding Methylergonovine Maleate 0.2 mg 07/26/20 08:06 Methylergonovine 0.2 Mg Tablet PO Q6HR PRN Heavy Bleeding Methylergonovine Maleate 0.2 mg 07/26/20 08:06 Methylergonovine 0.2 Mg/Ml Vial IM NOW PRN Bleeding Misoprostol 800 mcg 07/26/20 08:06 Misoprostol 200 Mcg Tablet UT NOW PRN Bleeding Misoprostol 1,000 mcg 07/26/20 08:06 Misoprostol 200 Mcg Tablet UT NOW PRN Bleeding Misoprostol 400 mcg 07/26/20 08:06 Misoprostol 200 Mcg Tablet SL NOW PRN Bleeding Oxytocin 10 unit 07/26/20 08:06 Oxytocin 10 Unit/Ml Vial IM NOW PRN Bleeding Zolpidem Tartrate 5 mg 07/25/20 19:33 05/23/21 21:33 Zolpidem 5 Mg Tablet PO 5 mg BEDTIME PRN Administration Sleep Allergies: Allergies Allergy/AdvReac Type Severity Reaction Status Date / Time No Known Allergies Allergy Uncoded 04/26/20 09:48 Procedure Insertion date: 07/26/20 Insertion time: 12:10 Prep/Local: betadine x3 Interspace: L2-3 Patient position: sitting Needle: 18 gauge Hustead (CSE: 27g Pencan through Hustead, clear CSF, 1mL 0.25% bupiv) Loss of resistance with: saline TERRI at (cm): 5 Catheter placed at SKIN (cm): 10 Catheter in SPACE (cm): 5 Insertion: No CSF, No Blood, No Paresthesia with insertion, No Paresthesia with injection and No Test dose reaction Initial Medications TEST DOSE time: 12:09 TEST DOSE: 1.5% lidocaine with epinephrine 1:200k (mL): 3 BOLUS DOSE time: 12:40 BOLUS DOSE (mL): 3 BOLUS DOSE med: other (infusate) Infusion INFUSION: 0.125% bupivacaine and with fentanyl 2 mcg/mL Initial rate (mL/hr): 6 Subsequent interventions: 5mL bolus of infusate approx 19:45 Post-procedure Anesthesia time START: 11:59 Anesthesia time END: 20:31 Post-procedure Anesthesia Assessment: Yes CV function: HR/BP stable, Yes Resp function: RR/sat/airway adequate, Yes Mental status appropriate and No Anesthesia complications
[2020-07-26] MEDS: FENT 2MCG/ML BUPIV 0.125% EPI 200 MCG/100 ML PLAST..BAG 6 MCG EPIDURAL (12:43)
--- NOTE | 2020-07-26 13:04 | PM.OBPNLAB ---
Date/Time Date Patient Seen: 07/26/20 Time Patient Seen: 13:05 Pain Control Pain control: epidural Pelvic Exam Dilation (cm): 4 Effacement (%): 80 station: -1 Amniotic membrane status: Ruptured (AROM, clear fluid) Contractions Pitocin rate (mU/min): 8 Contraction frequency (min): 2 Contraction intensity: Mild Status status: Category ll Heart Rate Baseline: 130 Monitor Accelerations: Present Monitor Decelerations: Late (shortly after epidural) Monitor Variability: Moderate Assessment and Plan Assessment: induction ongoing Plan: continuous present management
--- NOTE | 2020-07-26 17:26 | PM.OBPNLAB ---
Date/Time Date Patient Seen: 07/26/20 Time Patient Seen: 17:00 Pain Control Pain control: epidural Pelvic Exam Dilation (cm): 9 Effacement (%): 100 station: 0 Amniotic membrane status: Ruptured Comments: edematous anterior lip. Garcia bulb repositioned. Cat 2 EFM with prolonged deceleration, resolved with cessation of pitocin and repositioning. Contractions Pitocin rate (mU/min): 0 Contraction frequency (min): 3 Contraction intensity: Mild Status status: Category ll Heart Rate Baseline: 130 Monitor Accelerations: Present Monitor Decelerations: Late Monitor Variability: Moderate Assessment and Plan Assessment: induction ongoing Plan: continuous present management
--- NOTE | 2020-07-26 18:47 | PM.OBPNLAB ---
Date/Time Date Patient Seen: 07/26/20 Time Patient Seen: 18:47 Pain Control Pain control: epidural Pelvic Exam Dilation (cm): 9 Effacement (%): 100 station: 0 Amniotic membrane status: Ruptured Contractions Pitocin rate (mU/min): 0 Contraction frequency (min): 3 Contraction intensity: Mild Status status: Category l Heart Rate Baseline: 130 Monitor Accelerations: Present Monitor Decelerations: Absent Monitor Variability: Moderate Comments: + scalp stim. LOT on bedside US. IUPC placed. Assessment and Plan Assessment: induction ongoing Plan: continuous present management
--- NOTE | 2020-07-26 19:49 | PM.OBPNLAB ---
Date/Time Date Patient Seen: 07/26/20 Time Patient Seen: 19:49 Pain Control Pain control: epidural Pelvic Exam Dilation (cm): 9 Effacement (%): 100 station: 0 Amniotic membrane status: Ruptured Comments: LOT, asynclitic, compound right arm. Repositioning. Contractions Pitocin rate (mU/min): 6 Contraction frequency (min): 3 Contraction intensity: Mild Status status: Category ll Heart Rate Baseline: 130 Monitor Accelerations: Present Monitor Decelerations: Late Monitor Variability: Moderate Comments: + scalp stim Assessment and Plan Assessment: induction ongoing Plan: continuous present management Comments: Repositioning, discussed possibility of c section if cat 2 EFM continues. Will continue IOL given adequate contractions, reassuring features. Patient in exaggerated Christensen position.
--- NOTE | 2020-07-26 20:59 | PM.OBPRVD ---
Labor & Delivery Delivery date: 07/26/20 Intrapartal Events: Acceleration and Deceleration Cervical ripening method: per Cervidil protocol Induction method: per pitocin protocol Delivery augmentation: rupture of membranes Delivery monitor: external FHT, external uterine and internal uterine Route of delivery: L&D Laceration Description: Perineal - 1st Degree (spontaneously hemostatic) Estimated blood loss (mL): 150 Anesthesia Type: Epidural Narrative: This patient was admitted for induction of labor in the setting of a prior FAVD for an 8#8 baby. She underwent cervical ripening with cervidil, then induction with pitocin and AROM. She progressed to 9cm, where she was found to have an LOT, asynclitic presentation with a compound arm. The patient underwent copious repositioning, and progressed to fully and , where she was delivered without difficulty from the DORENE presentation. The shoulders delivered with ease, and there was no nuchal cord. Her placenta delivered spontaneously and intact shortly thereafter, and a 1st degree perineal laceration was spontaneously hemostatic with pressure. There were no other intrapartum or immediate complications. Baby Bhavesh: gender: Male Presentation: vertex Position: Right Occiput Anterior (compound right arm) Placenta delivery description: Spontaneous Cord Vessel Description: 3 Vessels score (1 min): 9 score (5 min): 9 weight: 7 lb 15 oz Plan for aftercare: Routine care
[2020-07-26] MEDS: ACETAMINOPHEN 325 MG TABLET 650 MG PO (23:26)
[2020-07-26] MEDS: IBUPROFEN 600 MG TABLET PO (23:26)
[2020-07-27 00:54] VITALS: BP 109/61
[2020-07-27] MEDS: ACETAMINOPHEN 325 MG TABLET 650 MG PO ×2 (05:59→11:53)
[2020-07-27] MEDS: IBUPROFEN 600 MG TABLET PO ×2 (05:59→11:53)
--- NOTE | 2020-07-27 08:28 | PM.OBDS.1 ---
Discharge Providers Provider Date of admission: 07/25/20 19:22 Discharge Date: 07/27/20 Primary care physician: EDEN Cook Consults: 07/27/20 21:04 Consult to Enhanced Environmental Operator Routine Comment: Discharge provider: Felicita Medina MD Summary Hospital Course Date Patient Seen: 07/27/20 Time Patient Seen: 08:10 Diagnoses: Hospital Course: This patient is a 29-year-old now para 2, day 1 status post vaginal delivery. The patient was admitted for induction of labor pre 9 weeks, in the setting of a prior third-degree perineal laceration after forceps assisted delivery. The patient was induced with Cervidil and then Pitocin. She was delivered of a 7 lb 15 oz baby boy no perineal laceration of date. The labor was complicated by category 2 heart rate tracing, the other intrapartum or immediate complications. The patient recovered well and met goals appropriately, and was discharged home on day 1 with routine precautions and follow-up. Peripartum Data Infant Delivery Method: Natural Vaginal Laceration Description: None complications: none [place] 1: Gender: Male Disposition of : home Status at Discharge Cognitive/behavioral status at discharge: oriented Functional status at discharge: independent ambulation Overall status at discharge: patient is progressing back to baseline Time Spent with Patient Time attestation: Total time spent providing and/or coordinating discharge services: Time spent: Less than 30 minutes Objective Labs Result Diagrams: 07/25/20 20:00 Exam Vital Signs (past 8 hours): - 95/56, HR 70 07/27/20 00:54 Blood Pressure 109/61 Narrative Exam Narrative: Patient feeling well, good pain control, ambulating, voiding, flatus present, tolerating PO, mild to moderate lochia. No other symptoms. Const General: cooperative, healthy appearing and comfortable Resp Effort & Inspection: normal respiratory effort Auscultation: clear to auscultation bilaterally Cardio Rate: regular rate Rhythm: regular rhythm GI Palpation: soft and No tender Extrem General: normal to inspection Discharge Plan Discharge Plan Patient Disposition: Home Discharge orders & Medications Prescriptions: Continued prenat.vits,taryn,[id number] Tablet 1 tab PO DAILY RF: 0 Follow up/Referrals: Felicita Medina MD [Physician] - 6 Weeks Diet/Activity/Treatments Diet: Regular Activity: Nothing in the vagina for 6 weeks. Avoid lifting more than 10 lbs for 6 weeks. If you have increasing bleeding, fevers, chills, nausea, vomiting, headaches, visual changes, worsening depression or anxiety, or any other symptoms, call or come to the emergency room. Skin/Wound/Dressing Care Report to your healthcare provider any signs of infection, such as:: chills, fever, night sweats, increased pain, unusual drainage and unusual redness Visit Report/Discharge Packet Instructions: DI for Labor and Delivery, Vaginal Discharge Data Primary Care Provider: Josef Sommer
[2020-07-27] MEDS: PRENATAL VIT,CALC/IRON/FOLIC 1 TABLET 1 TAB PO (09:13)
[2020-07-27 12:49] VITALS: BP 112/68; PULSE 72; RESP 17; TEMP 36.9
[2020-07-27] MEDS: MEASLES,MUMPS,RUBELLA VACC/PF 0.5 ML VIAL SUBCUT (17:22)
== END 2020-07-27 17:50 | disposition home or self-care (01) | DRG 807 ==
PROVIDERS: Admitting Provider Obstetrics & Gynecology; PCP Nurse Practitioner Family; Referring Provider Obstetrics & Gynecology; Visit Provider Obstetrics & Gynecology
DX: O32.6XX0 Maternal care for compound presentation, not applicable or unspecified (principal); Z37.0 Single live birth; O76 Abnormality in fetal heart rate and rhythm complicating labor and delivery; Z3A.39 39 weeks gestation of pregnancy; O70.0 First degree perineal laceration during delivery
CPT/HCPCS: 01967; 36415; 59050; 59200; 59400; 85025; 86850; 86900; 86901; 87635; C9803; G0379; J2590

== ENCOUNTER → 2020-07-28 08:09 | Outpatient (CLI) | payer OTHER, SELFPAY ==
[2020-07-28] MEDS: COVID-19 VACC, Ad26(JANSSEN)/PF 0.5 ML IM (08:30)
== END ==
PROVIDERS: PCP Nurse Practitioner Family; Visit Provider Internal Medicine
DX: Z23 Encounter for immunization (principal)
CPT/HCPCS: 0031A; 91303